=== PATIENT | male | born 1945 | race Caucasian/White ===

== ENCOUNTER 2016-10-15 08:18 | Emergency (ER) | payer OTHER, MEDICARE ==
[2016-10-15 08:31] VITALS: BP 163/73; PULSE 104; RESP 18; TEMP 98; O2SAT 100
[2016-10-15 08:36] VITALS: BMI 23.3
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
== END 2016-10-15 09:26 | disposition home or self-care (01) ==
LOC: ED 08:18 → EDBD 08:18 → MERGE 08:18 → ED 09:26
DX: Z04.1 Encounter for examination and observation following transport accident (principal)